=== PATIENT | male | born 1945 | race Caucasian/White ===

== ENCOUNTER → 2017-11-13 | Outpatient (CLI) | payer MEDICARE, BC ==
[~2017-11-13] MED LIST: AMBIEN 10MG10 M1 PO; AMBIEN 10MG10 MG PO; AMITRIPTYLINE50 MG PO; ANTIVERT 25MG25 MG PO; ASPIRIN 32325 MG/TAB PO; ASPIRIN 81M81 MG/TA2 PO; ATENOLOL100 MG PO; ATIVAN 0.50.5 MG/TAB PO; ATIVAN 1MG T1 MG/TAB PO; ATIVAN1 MG PO; BROVANA15 MCG/2 M IH; CELEXA10 MG PO; CLARITIN PO; DEPAKOTE ER500 M1 PO; GABAPENTIN300 MG PO; GRALISE600 MG PO; LEXAPRO10 MG PO; LIPITOR20 MG PO; LISINOPRIL20 MG PO; NAMENDA 10MG TA10 MG PO; NAMENDA10 MG PO; NORCO 325 MG-7.1 TAB PO; NUVIGIL250 MG PO; PROVENTIL0.09 MG/A1 IH; PULMICORT R1 MG/2 ML IH; QVAR0.08 MG/AC IH; RAPAFLO8 MG PO; ROXICODONE 55 MG/TAB PO; RT SPIRIVA18 MCG IH; TENORMIN100 MG PO; UROCIT-K 1010 MEQ PO; ZESTRIL 20MG TA20 MG PO; ZOFRAN 4MG T4 MG/TAB PO; ZYRTEC 10MG10 MG PO
[2017-11-13 18:08] LABS: HIV 1/2 Antibodies Non-Reactive; HIV-1p24 Antigen Non-Reactive
== END ==
LOC: COL.LAB 16:51
PROVIDERS: Orthopaedic Surgery
DX: Z01.812 Encounter for preprocedural laboratory examination (principal); M17.11 Unilateral primary osteoarthritis, right knee

== ENCOUNTER → 2017-12-19 | Outpatient (CLI) | payer MEDICARE, BC ==
[2017-12-19 16:26] LABS: HEMOGLOBIN 14.6 g/dl (13.5-18.0); MEAN CELL VOLUME 89 fl (80.0-100.0); MEAN CORPUSCULAR HEMOGLOBIN 30 pg (27.0-31.0); MEAN CORPUSCULAR HGB CONC 33 g/dl (33.0-37.0); MEAN PLATELET VOLUME 9.4 fl (7.4-10.4); PLATELET COUNT 332 K/mm3 (130-400); RED BLOOD COUNT 4.94 M/mm3 (4.20-5.60); REDCELL DISTRIBUTION WIDTH-CV 12.9 % (11.5-14.5)
[2017-12-19 16:58] LABS: ERYTHROCYTE SEDIMENTATION RATE 18 mm/hr (0-30)
== END ==
LOC: COL.LAB 15:54
PROVIDERS: Orthopaedic Surgery
DX: Z47.1 Aftercare following joint replacement surgery (principal); L53.8 Other specified erythematous conditions; Z96.651 Presence of right artificial knee joint

== ENCOUNTER 2018-01-10 10:45 | Outpatient (RCR) | payer MEDICARE, BC | END 2018-01-13 | disposition home or self-care (01) | LOC: WSST | DX: R41.3 Other amnesia (principal) | CPT/HCPCS: G9168-GN; G9169-GN ==

== ENCOUNTER 2018-04-11 10:30 | Outpatient (RCR) | payer MEDICARE, BC | END 2018-04-15 | disposition home or self-care (01) | LOC: WSST | DX: R41.3 Other amnesia (principal) | CPT/HCPCS: G9168-GN; G9169-GN ==

== ENCOUNTER 2018-07-11 10:30 | Outpatient (RCR) | payer MEDICARE, BC | END 2018-07-15 | disposition home or self-care (01) | LOC: WSST | DX: R41.3 Other amnesia (principal); G31.84 Mild cognitive impairment of uncertain or unknown etiology ==

== ENCOUNTER 2018-10-08 10:30 | Outpatient (RCR) | payer MEDICARE, BC | END 2018-10-14 | disposition still patient (30) | LOC: WSST | DX: G31.84 Mild cognitive impairment of uncertain or unknown etiology (principal) ==

== ENCOUNTER 2018-11-12 10:30 | Outpatient (RCR) | payer MEDICARE, BC | END 2019-01-09 14:04 | disposition home or self-care (01) | LOC: WSST 10:30 | DX: R41.3 Other amnesia (principal) ==

== ENCOUNTER 2019-05-29 10:30 | Outpatient (RCR) | payer MEDICARE, BC | END 2019-06-02 | disposition still patient (30) | LOC: WSST | DX: R41.3 Other amnesia (principal); R41.841 Cognitive communication deficit ==